=== PATIENT | female | born 1980 | race Caucasian/White ===

== ENCOUNTER 2024-03-12 09:57 | Emergency (ER) | payer MEDICAID, OTHER ==
[~2024-03-12] VITALS: Ht 147.3 cm; Wt 54.5 kg
[~2024-03-12 09:57] MED LIST: LEVO175T2 PO; TOPI25TA15 PO
[2024-03-12] MEDS ORDERED: HYDR-3965 PO (11:14)
[2024-03-12 11:57] VITALS: BP 139/86; PULSE 84; RESP 16; TEMP 98.6; O2SAT 100
== END 2024-03-12 12:02 | disposition home or self-care (01) ==
LOC: ER 09:59
DX: S52.602A Unspecified fracture of lower end of left ulna, initial encounter for closed fracture (principal); E03.9 Hypothyroidism, unspecified; Z88.0 Allergy status to penicillin; Z88.1 Allergy status to other antibiotic agents; Z79.2 Long term (current) use of antibiotics; Z79.899 Other long term (current) drug therapy; V59.88XA Occupant (driver) (passenger) of pick-up truck or van injured in other specified transport accidents, initial encounter; Y93.89 Activity, other specified; Y92.89 Other specified places as the place of occurrence of the external cause; Y99.8 Other external cause status
CPT/HCPCS: 29125; 73110; 99283; A4565; A6446; A6449